=== PATIENT | female | born 2000 | race Caucasian/White ===

== ENCOUNTER 2022-02-20 17:21 | Emergency (ER) | payer MEDICAID, SELFPAY ==
[2022-02-20 17:42] VITALS: BP 103/63; PULSE 103; RESP 20; TEMP 36.8; O2SAT 100
--- NOTE | 2022-02-20 18:37 | W.ED.GENAD ---
Discharge Plan Disposition Patient Disposition: Home Condition: Stable Discharge Details Clinical Impression: URI (upper respiratory infection), Asthma exacerbation Primary Care Provider: None,None ED Provider: Domingo Yuen Home Meds and New Rx's Prescriptions: New benzonatate 200 mg capsule 200 mg PO TID PRN (Reason: cough) Qty: 30 0RF prednisone 20 mg tablet 40 mg PO DAILY Qty: 8 0RF Continued omeprazole 40 mg Capsule,Delayed Release(Dr/Ec) 40 mg PO DAILY PRN epinephrine 0.3 mg/0.3 mL Auto-Injector See Rx Instructions .ROUTE .COMPLEX Rx Instructions: Use as needed for allergic reaction albuterol sulfate 90 mcg/actuation Hfa Aerosol Inhaler 2 puff INHALATION Q6H PRN Discharge Instructions Instructions: Asthma (ED), Upper Respiratory Infection (ED) Additional Instructions: Please stay well-hydrated and get plenty of rest during your viral illness. If you develop any new or significant worsening of symptoms feel free to return the emergency department for reassessment. Otherwise if not improving by early next week feel free to return the emergency department for reassessment or follow-up with primary care provider or urgent care provider. Referrals: Primary Care Provider [Outside] Discharge Data Discharge Date/Time-TO BE ENTERED AT DEPARTURE: 02/20/22 19:20 Medical Decision Making Patient presented in emergency department for chief complaint of cold symptoms. She states over the past 3 days she has had increasing nasal congestion, sore throat, postnasal drip, and now having cough and chest tightness. She does state significant history of asthma. Physical exam shows decreased but clear lung sounds in lower bases otherwise exam is unremarkable beyond significant nasal congestion. Patient is negative for COVID and influenza via rapid antigen testing. We will perform send out test for COVID given patient stating recent travel. Otherwise I do not feel that patient has pneumonia at this time and I feel that this is an upper respiratory virus that is causing secondary asthma exacerbation. Will give patient albuterol, Tessalon Perles, and Decadron with continued prednisone at home and Tessalon Perles and albuterol inhaler. After discussion of diagnosis and plan of care patient has no further needs, questions, or concerns and states clear understanding to return to the emergency department for any worsening symptoms. This documentation was generated using [email or web address] system, please disregard any oddities of phrase or misspellings. Sign Out No HPI General Mode of arrival: ambulatory. Date/Time Provider Initiated Documentation: 02/20/22 17:49. Limitations to Documentation: no limitations. Information obtained by: patient. History of Present Illness 21 year old F presents to the emergency department with the chief complaint of cough and cold symptoms, described as moderate, with intensity rated at 7. Quality is described as aching, and is localized to the chest. Patient reports no radiation. Patient started experiencing this day(s) (3) and it has been constant. No relieving factors improve symptom(s), No exacerbating factors reported . Related Data Home Medications Medication Instructions Recorded Confirmed albuterol sulfate 90 mcg/actuation 2 puff inhalation Q6H PRN 02/20/22 02/20/22 aerosol inhaler benzonatate 200 mg capsule 200 mg PO TID PRN cough #30 caps 02/20/22 epinephrine 0.3 mg/0.3 mL See Rx Instructions .Route .COMPLEX 02/20/22 02/20/22 injection, auto-injector omeprazole 40 mg capsule,delayed 40 mg PO DAILY PRN 02/20/22 02/20/22 release prednisone 20 mg tablet 40 mg PO DAILY #8 tabs 02/20/22 Previous Rx's Medication Instructions Recorded benzonatate 200 mg capsule 200 mg PO TID PRN cough #30 caps 02/20/22 prednisone 20 mg tablet 40 mg PO DAILY #8 tabs 02/20/22 Allergies Allergy/AdvReac Type Severity Reaction Status Date / Time acetaminophen AdvReac Mild Nausea Unverified 02/20/22 17:47 General Stated Complaint: RespSymp CASSIE: 3 Review of Systems Constitutional Constitutional: Reports body ache(s), Reports chills, Reports headache(s), Reports lethargy, Reports malaise and Reports poor appetite Eyes Eyes: Denies eye discharge ENT Ears, Nose, Mouth, and Throat: Denies otalgia, Reports headache(s), Reports nasal congestion, Reports nasal discharge, Denies neck pain, Reports sinus pressure, Reports sore throat and Denies throat swelling Cardiovascular Cardiovascular: Denies chest pain and Denies dyspnea Respiratory Respiratory: Reports cough, Reports pain with cough and Denies dyspnea Musculoskeletal Musculoskeletal: Denies joint swelling and Denies neck pain Integumentary/Breasts Skin/Breast: Denies rash Neurologic Neurologic: Reports headache(s) Allergic/Immunologic Allergic/Immunologic: Denies throat swelling PFSH All Active Problems (Updated 02/20/22 @ 18:42 by Domingo Yuen NP) URI (upper respiratory infection) (Acute) Asthma exacerbation (Acute) Social History Smoking/Tobacco Use Status: Never Smoking risk assessment performed?: Yes Alcohol Intake: never Drug use: Never Substance use type: does not use Do you feel safe at home: Yes Do you feel safe in your relationship?: Yes Exam Const General: cooperative, no acute distress and ill appearing acutely Orientation: alert and awake [facility] Head: normal to inspection, normocephalic and atraumatic Ears: hearing grossly normal bilaterally and TM's normal bilaterally General nose exam: external nose normal Face and sinus: no erythema and sinus tenderness ethmoid and maxillary Mouth: oral mucosae normal, no drooling, no muffled voice and no trismus Throat: posterior oropharynx normal Neck Neck: normal visual inspection, full ROM, no lymphadenopathy, no meningeal signs, trachea midline and supple Resp Effort & Inspection: normal respiratory effort, able to speak in complete sentences and cough Quality of cough: dry Auscultation: clear to auscultation bilaterally and diminished lung sounds bilaterally in the lower lung pineda Cardio Rate: regular rate Rhythm: regular rhythm Heart Sounds: S1 normal, S2 normal, normal S1 and S2, no click, no gallops, no murmurs and no rubs Skin General skin exam: no rashes or lesions noted and dry skin (warm) Neuro General: patient alert, patient awake, patient oriented x3, gait normal and moves all extremities Cognition: normal cognition Speech: speech normal Course Vital Signs Vital signs: Vital Signs Temperature 36.8 C 02/20/22 17:42 Pulse 103 H 02/20/22 17:42 Respiratory Rate 20 02/20/22 17:42 Blood Pressure 103/63 02/20/22 17:42 Pulse Oximetry 100 02/20/22 17:42 Temperature 36.8 C 02/20/22 17:42 Temperature Source Oral 02/20/22 17:42 Pulse 103 H 02/20/22 17:42 Respiratory Rate 20 02/20/22 17:42 Respiratory Effort Short of Breath 02/20/22 17:50 Respiratory Depth Normal 02/20/22 17:50 Blood Pressure 103/63 02/20/22 17:42 Blood Pressure Position Sitting 02/20/22 17:42 Pulse Oximetry 100 02/20/22 17:42 Oxygen Delivery Method Room Air 02/20/22 17:42 Oxygen Flow Rate 0 02/20/22 17:42 Pain Level 7 02/20/22 17:42 Lab/Test Results Lab/Test Results: POC- Test(urine) Negative
[2022-02-20] MEDS: Albuterol/Ipratropium 3 ML UPD VIAL UPD (18:52)
[2022-02-20] MEDS: Benzonatate 100 MG CAP PO (18:53)
[2022-02-20] MEDS: Dexamethasone 10 MG/ML VIAL PO (18:53)
[2022-02-20] MEDS: Albuterol HFA 8 GM 60 PUFF INH IH (19:19)
[2022-02-22 10:54] LABS: COVID-19 RT-PCR UVMMC Result Negative (Negative)
== END 2022-02-20 19:20 | disposition home or self-care (01) ==
PROVIDERS: Emergency Provider Nurse Practitioner Family
DX: J06.9 Acute upper respiratory infection, unspecified (principal); J45.901 Unspecified asthma with (acute) exacerbation; Z20.822 Contact with and (suspected) exposure to COVID-19
CPT/HCPCS: 81025; 99283; U0003; J1100; J7620

== ENCOUNTER 2022-06-27 18:09 | Emergency (ER) | payer MEDICAID, SELFPAY ==
[2022-06-27 18:14] VITALS: BP 110/77; PULSE 81; RESP 16; O2SAT 99
--- NOTE | 2022-06-27 18:15 | RT.EKG_ITS ---
APPROVED REPORT Exam: Resting ECG Reason for Exam: fainting Patient Location: E HR:79 bpm ECG Measurements Heart Rate 79 AXIS WA 136 P 92 QRSd 89 QRS 49 QT 375 T 55 QTc 430 Conclusion Sinus rhythm...normal P axis, V-rate 60- 99 Normal Electrocardiogram
[2022-06-27 18:23] VITALS: RESP 16
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
[2022-06-27] MEDS: LORazepam 0.5 MG TAB PO (19:02)
[2022-06-27 19:16] LABS: HCT 34.9 % (36.0-46.0); HGB 12.1 g/dL (11.2-15.7); MCH 29.6 pg (27.0-33.0); MCHC 34.7 % (32.0-36.0); MCV 85 fL (80-95); MPV 10.7 fL (8.0-11.0); Platelet Count 263 10^3/uL (130-400); RBC 4.09 10^6/uL (3.93-5.22); RDW 11.5 % (11.7-14.6); RDW-SD 35.7 fL; WBC 5.79 10^3/uL (4.4-10.8)
[2022-06-27 19:34] LABS: Anion Gap 6.6 mmol/L (3-11); BUN 7 mg/dL (7-18); CO2 27.4 mmol/L (21.0-32.0); CREATININE 0.9 mg/dL (0.55-1.02); Chloride 106 mmol/L (98-107); Estimated GFR 93.28 (mL/min/1.73m2); Glucose 95 mg/dL (74-106); Potassium 3.4 mmol/L (3.5-5.1); Sodium 140 mmol/L (136-145)
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
--- NOTE | 2022-06-29 12:56 | PDOC.ERCMACT ---
- If Service Date Differs Date of service: 06/29/22 Time of Service: 12:56 Care Management Activity Note Jo Ann is seen in the ED for pre-syncope and anxiety. At the request of ED provider, LAMBERT coordinates a referral to DARREN Jackman, of [facility], t-doc, to assist Jo Ann in obtaining a follow up appointment and in establishing care with a PCP. She has Medicaid for insurance.
== END 2022-06-27 22:46 | disposition home or self-care (01) ==
PROVIDERS: Emergency Provider Physician Assistant
DX: F41.9 Anxiety disorder, unspecified (principal); R55 Syncope and collapse; F32.A Depression, unspecified; J45.909 Unspecified asthma, uncomplicated
CPT/HCPCS: 80048; 81025; 85027; 93005; 99284; 84443; 93010

== ENCOUNTER 2022-07-18 15:33 | Outpatient (REF) | payer MEDICAID, SELFPAY ==
[2022-07-18 14:44] LABS: Abs Immature Grans 0.01 10^3/uL (0.0-0.06); Absolute Basophil Count 0.03 10^3/uL (0.0-0.2); Absolute Eosinophil Count 0.11 10^3/uL (0.0-0.7); Absolute Lymphocyte Count 1.43 10^3/uL (1.2-3.4); Absolute Neutrophil Count 2.87 10^3/uL (1.2-6.7); Basophils % 0.6; Eosinophils % 2.3; HCT 37.7 % (36.0-46.0); HGB 12.7 g/dL (11.2-15.7); Immature Grans % 0.2; Lymphocytes % 29.5; MCH 28.8 pg (27.0-33.0); MCHC 33.7 % (32.0-36.0); MCV 86 fL (80-95); MPV 11.1 fL (8.0-11.0); Monocytes % 8.2; Neutrophils % 59.2; Platelet Count 319 10^3/uL (130-400); RBC 4.41 10^6/uL (3.93-5.22); RDW 11.2 % (11.7-14.6); RDW-SD 35.3 fL; WBC 4.85 10^3/uL (4.4-10.8)
[2022-07-18 15:01] LABS: Anion Gap 6.2 mmol/L (3-11); BUN 8 mg/dL (7-18); CO2 27.8 mmol/L (21.0-32.0); CREATININE 0.8 mg/dL (0.55-1.02); Calcium 9.7 mg/dL (8.5-10.1); Chloride 103 mmol/L (98-107); Estimated GFR 107.44 (mL/min/1.73m2); Glucose 81 mg/dL (74-106); Potassium 4.2 mmol/L (3.5-5.1); Sodium 137 mmol/L (136-145)
== END 2022-07-18 15:34 | disposition home or self-care (01) ==
LOC: LBN 15:33
PROVIDERS: Visit Provider Physician Assistant Medical
DX: R42 Dizziness and giddiness (principal)
CPT/HCPCS: 80048; 85025

== ENCOUNTER 2022-08-14 11:34 | Emergency (ER) | payer MEDICAID, SELFPAY ==
[2022-08-14 11:45] VITALS: BP 101/76; PULSE 91; RESP 18; TEMP 37; O2SAT 97
[2022-08-14 12:26] LABS: Bilirubin Negative (Negative); Blood Negative (Negative); Clarity Clear (Clear); Glucose Negative (Negative); Ketones Negative (Negative); Leukocyte Esterase Negative (Negative); Nitrite Negative (Negative); Specific Gravity 1.025 (1.005-1.025)
[2022-08-14 12:41] LABS: *AMPHETAMINES SCREEN URINE Negative (Negative); *BARBITURATES SCREEN URINE Negative (Negative); *BENZODIAZEPINES SCREEN URINE Negative (Negative); Cannabinoids THC Negative (Negative); Cocaine Screen,Urine Negative (Negative); METHADONE URINE SCREEN Negative (Negative); OPIATES URINE SCREEN Negative (Negative)
[2022-08-14 12:43] LABS: Tricyclic Antidepressants Negative (Negative)
--- NOTE | 2022-08-14 14:11 | ED.GENADUL_ITS ---
Discharge Plan Disposition Patient Disposition: Home Condition: Stable Discharge Details Clinical Impression: Depression, Anxiety Primary Care Provider: Akosua Patricia ED Provider: Allen Fallon Home Meds and New Rx's Prescriptions: Continued epinephrine 0.3 mg/0.3 mL Auto-Injector See Rx Instructions .ROUTE .COMPLEX Rx Instructions: Use as needed for allergic reaction albuterol sulfate 90 mcg/actuation Hfa Aerosol Inhaler 2 puff INHALATION Q6H PRN Patient Comments: per patient I dont use this anymore Held hydroxyzine HCl 25 mg Tablet 25 mg PO PRN PRN Hold Instructions: Resume on 08/15/22. hold until discussed with psychiatry Discontinued omeprazole 40 mg Capsule,Delayed Release(Dr/Ec) 40 mg PO DAILY PRN Patient Comments: per patient I just don't take that anymore benzonatate 200 mg capsule 200 mg PO TID PRN (Reason: cough) Qty: 30 0RF Patient Comments: RX complete 06/27/[address]22 CT prednisone 20 mg tablet 40 mg PO DAILY Qty: 8 0RF Patient Comments: per patient prescription completed Discharge Instructions Instructions: Depression (ED), Anxiety (ED) Additional Instructions: Please follow-up tomorrow with psychiatry at [facility] at 12:00 noon. Please contact your primary care physician to arrange follow-up. Return to the ER immediately for any worsening or new concerning symptoms. Stand Alone Forms: Work Release Referrals: Akosua Patricia [Primary Care Provider] - Medical Decision Making 21-year-old female with history of anxiety and depression, here with exacerbation of anxiety and passive fleeting suicidal thoughts. Patient recently seen by primary care physician and trialing various psychiatric medications. Patient was medically screened and no acute medical condition identified. Smart medical clearance was utilized. Crisis screener from designated agency was consulted and evaluated the patient at bedside. She does not recommend seeking inpatient psychiatric treatment and recommends discharge with safety plan in place and close outpatient follow-up. I called and spoke with patient's primary care office, [facility] and arranged for patient to have a visit with psychiatric nurse practitioner tomorrow at 12 noon. Plan was discussed with the patient who is in agreement. Patient feels safe with discharge and discharge plan as outlined. Usual customary discharge instructions were reviewed with the patient and she was encouraged to return immediately should have any worsening or new concerning symptoms. HPI General Mode of arrival: ambulatory . Date/Time Provider Initiated Documentation: 08/14/22 12:19 . Limitations to Documentation: no limitations . Information obtained by: patient . HPI Narrative: 21-year-old female with history of longstanding anxiety disorder and depression, presents with worsening anxiety over the past 2 months and now with fleeting suicidal thoughts. Patient notes she has been seen by her primary care physician and has been trialing medications over the past couple weeks. She was on Zoloft for 4 days and felt that it made her angry. This was discontinued last week. She was then trialed on propanolol which she notes did not help her anxiety. She just recently started hydroxyzine with plan to start Wellbutrin. She notes hydroxyzine did help with her anxiety but it made her excessively tired and then she felt quite anxious about this. She notes over the past few days she has been having passive thoughts of suicidality when she is anxious including thinking about cutting herself or jumping in front of a motor vehicle. Patient notes history of vaping. Related Data Home Medications Medication Instructions Recorded Confirmed albuterol sulfate 90 mcg/actuation 2 puff inhalation Q6H PRN 02/20/22 08/14/22 aerosol inhaler epinephrine 0.3 mg/0.3 mL See Rx Instructions .Route .COMPLEX 02/20/22 08/14/22 injection, auto-injector hydroxyzine HCl 25 mg tablet 25 mg PO PRN PRN 08/14/22 08/14/22 Allergies Allergy/AdvReac Type Severity Reaction Status Date / Time shellfish derived Allergy Severe Anaphylaxis Unverified 08/14/22 11:54 lactose Allergy Intermediate Other (See Unverified 08/14/22 11:54 Comment) peanut AdvReac Severe Anaphylaxis Unverified 08/14/22 11:54 tree nut AdvReac Intermediate Hives Unverified 08/14/22 11:54 acetaminophen AdvReac Mild Nausea Unverified 08/14/22 11:54 General Stated Complaint: PsychEval CASSIE: 2 Review of Systems All systems reviewed & are unremarkable except as noted in HPI and below Constitutional Constitutional: Denies fever(s) Psychiatric Psychiatric: Reports as per HPI PFSH All Active Problems Depression (Chronic) Anxiety (Chronic) Asthma (Chronic) Social History Smoking/Tobacco Use Status: Never Smoking risk assessment performed?: Yes Alcohol Intake: never Drug use: Never Substance use type: does not use Do you feel safe at home: Yes Do you feel safe in your relationship?: Yes Exam Const General: cooperative HENMT Head: normocephalic and atraumatic Mouth: moist mucous membranes Eyes Conjunctivae: normal conjunctivae Sclera: normal sclerae Neck Neck: trachea midline and supple Resp Auscultation: clear to auscultation bilaterally, no rales, no rhonchi and no wheezes Cardio Rate: regular rate and not tachycardic Rhythm: regular rhythm GI Palpation: soft, not firm, no guarding, no masses, not rigid and nontender Skin General skin exam: no rashes or lesions noted Neuro General: patient alert, patient awake, patient oriented x3 and tone normal Psych Appearance: grossly normal Mental Status: mental status grossly normal Speech and Movement: speech and movement normal Mood: anxious mood Affect: normal affect Attitude: cooperative Thought Process: normal Insight: insight good Judgment: judgment good Course Vital Signs Vital signs: Vital Signs Temperature 37.0 C 08/14/22 11:45 Pulse 91 H 08/14/22 11:45 Respiratory Rate 18 08/14/22 11:45 Blood Pressure 101/76 08/14/22 11:45 Pulse Oximetry 97 08/14/22 11:45 Temperature 37.0 C 08/14/22 11:45 Temperature Source Oral 08/14/22 11:45 Pulse 91 H 08/14/22 11:45 Respiratory Rate 18 08/14/22 11:45 Blood Pressure 101/76 08/14/22 11:45 Blood Pressure Position Sitting 08/14/22 11:45 Pulse Oximetry 97 08/14/22 11:45 Oxygen Delivery Method Room Air 08/14/22 11:45 Oxygen Flow Rate 0 08/14/22 11:45 Lab/Test Results Lab/Test Results: Laboratory Tests Range/Units 08/14/22 08/14/22 12:15 12:15 Urine Color (Yellow) Yellow Urine Clarity (Clear) Clear Urine pH (5-8) 7.0 Ur Specific [place] (1.005-1.025) 1.025 Urine Protein (Negative) mg/dL Negative Urine Ketones (Negative) mg/dL Negative Urine Blood (Negative) Negative Urine Nitrite (Negative) Negative Urine Bilirubin (Negative) Negative Urine Urobilinogen (Up to 0.2) mg/dL 1.0 H Ur Leukocyte Esterase (Negative) Negative Urine Glucose (Negative) mg/dL Negative Urine Opiates Screen (Negative) Negative Urine Methadone Screen (Negative) Negative Ur Barbiturates Screen (Negative) Negative Ur Tricyclics Screen (Negative) Negative Ur Amphetamines Screen (Negative) Negative U Benzodiazepines Scrn (Negative) Negative Urine Cocaine Screen (Negative) Negative Ur THC Screen (Negative) Negative
[2022-08-14 14:51] VITALS: PULSE 80; RESP 18; O2SAT 98
== END 2022-08-14 14:59 | disposition home or self-care (01) ==
PROVIDERS: Emergency Provider Student in an Organized Health Care Education/Training Program; PCP Nurse Practitioner Family
DX: F32.A Depression, unspecified (principal); R45.851 Suicidal ideations; F41.0 Panic disorder [episodic paroxysmal anxiety]; F41.9 Anxiety disorder, unspecified
CPT/HCPCS: 80307; 81025; 99285; 81003; 99284

== ENCOUNTER 2022-08-15 12:57 | Outpatient (REF) | payer MEDICAID, SELFPAY ==
[2022-08-15 19:22] LABS: Vitamin B12 208 pg/mL (193-986)
--- NOTE | 2022-08-18 08:27 | PDOC.MHCN_ITS ---
Date of service: 08/14/22 Time of Service: 08:29 PHQ-9 Over the last 2 weeks, how often have you been bothered by any of the following problems? 1. Little interest or pleasure in doing things: more than half the days 2. Feeling down, depressed, or hopeless: nearly every day 3. Trouble falling or staying asleep, or sleeping too much: several days 4. Feeling tired or having little energy: nearly every day 5. Poor appetite or overeating: nearly every day 6. Feeling bad about yourself - or that you are a failure or have let yourself and your family down: more than half the days 7. Trouble concentrating on things, such as reading the newspaper or watching television: several days 8. Moving or speaking so slowly that other people could have noticed? - Or the opposite - being so fidgety or restless that you have been moving around a lot more than usual: several days 9. Thoughts that you would be better off or of hurting yourself in some way: several days Total score: 17 If you checked off any problems, how difficult have these problems made it for you to do your work, take care of things at home, or get along with other people?: somewhat difficult Source: Developed by Drs. Alex Garcia, Naya Sibley, Chirstiano Dorantes and colleagues, with an educational lizett from [employer]. Suicide Severity Rate CSSRS Have you wished you were or wished you could go to sleep and not wake up?: No Have you actually had any thoughts of killing yourself?: Yes CSSRS2 Have you been thinking about how you might do this?: No Have you had these thoughts and had some intention of acting on them?: No Have you started to work out or worked out the details of how to kill yourself? Do you intend to carry out this plan?: No CSSRS3 Have you ever done anything, started to do anything or prepared to do anything to end your life?: No CSSRS4 Was this within the past three months?: No Screening Score Total Score: 2 Screening: Positive Mental Health Emergency Note Release [facility] release signed:: Yes Reason for Visit [facility] outreached to [facility] for an assessment of the client who presented with anxiety and vague SI. Client had been assessed once before by this clinician in May and a referral was put in for therapy at her request however, she never responded to outreaches. Client is seen face to face. In the last 2 weeks has the pt presented for ES prior to today?: No Client Information Client is: Adult Outpatient Well Housed: Yes Non Suicidal Self Injury Current: No History: No Safety Risk/Harm to Self or Others Current Ideation to Harm Self or Others: No Risk: Does risk to harm exist?: No Risk: Low Risk Duty to warn indicated: No Asssessment/Mental Status Appearance: Well groomed Attitude: Cooperative Behavior: Unremarkable Speech: Normal Affect: Normal Mood: Euthymic Thought process: Unremarkable Hallucinations: No Delusions: No Attention: Unremarkable Perception: Not impaired Memory: Intact Insight: Good Judgement: Good Neurovegetative Symptoms Sleep: Decrease Appetitie: Decrease Interests: Decrease Energy: Decrease Libido: Not applicable Substance Use: Do you use nicotine?: Yes Have you used substances in the last 7 days?: No Additional Issues: Assaultive/Threatening Behavior: No Medical Concerns: No Client engaged in active self harm w/weapon: No Threatening to run away: No Child reported abuse/neglect: No Voluntarily presenting for services: Yes Domestic violence is a concern: No Extreme Psychosis or extreme behavior is present: No Impression Client is a 21 year old, single, female who lives with her boyfriend and works for [employer] in [facility]. This is this clinician's second time assessing the client this year. Client reported she started taking medications in the past couple of weeks and wondered if this is why she is struggling right now as she has been sensitive to any meds in the past hence why she does not take medications for her ADD/ADHD. She stated that she took one of her hydroxazine for anxiety last night and she woke up still tired. She stated that she began having suicidal thoughts but are they really? I can't differentiate between SI or just intrusive thoughts. She reported that last night her thoughts were racing and her chest was heavy whole she was driving and then she had thoughts to drive into oncoming traffic or to slit her wrists or to overdose on medications. To all when she has these thou ghts she tells herself no. She reported that the thoughts are overwhelming and unfamiliar to her. She stated that she took Zoloft once and although it made her mostly happy at some point it began to increase her rage. She also stated that she took Propranolol and that was awful for her. She was also prescribed Welbutrin however is not supposed to start that until Thursday per her report. She scored a 17/27 on the PHQ-9 and a 3/5 on the PC-PTSD-5. She answered yes to only question 2 on the CSSRS. She reported poor sleep, appetite, interest levels and energy levels. The above identified supports the Generalized anxiety disorder given at time of opening however, this clinician also questions a MDD disorder as well. Her protective factors are futuristic thinking, employment, coping skills, and her ability to self regulate as much as she does with what she is experiencing as well as, her support network. Client is interested in therapy and this was questioned as a referral was put in back in May and documentation stated that she did not return calls. She reported that she did not recall getting calls about this. This clinician consulted also with Dr. Fallon who plans to connect with [facility] to expedite her referral. A CARE Bed referral was discussed however, the client would like to think on this for a bit. Resources Reosurces reviewed and given:: [facility] Plan/Disposition Recommended Disposition: Crisis bed, (Offered but declined ) No and Therapy. Plan: Client participated in a safety plan where she will do daily check in calls until Thursday and then will connect with her in place team. She will consider the CARE Bed as an option.? Person reported agreement to plan: Yes Reports/communication Outcome discussed with: ED/Personnel
== END 2022-08-15 12:58 | disposition home or self-care (01) ==
LOC: NCHCN 12:57
PROVIDERS: PCP Nurse Practitioner Family; Visit Provider Registered Nurse
DX: F31.81 Bipolar II disorder (principal); Z79.899 Other long term (current) drug therapy
CPT/HCPCS: 82607; 84443

== ENCOUNTER 2022-08-30 20:38 | Emergency (ER) | payer MEDICAID, SELFPAY ==
[2022-08-30] VITALS (12 sets, daily range): BP systolic 100–121; BP diastolic 70–79; PULSE 63–99; RESP 9–22; TEMP 36.8; O2SAT 97–100
[2022-08-30] MEDS: LORazepam 0.5 MG TAB PO (21:37)
[2022-08-30 21:44] LABS: Bilirubin Negative (Negative); Blood Negative (Negative); Clarity Clear (Clear); Glucose Negative (Negative); Ketones Negative (Negative); Leukocyte Esterase Negative (Negative); Nitrite Negative (Negative); Urobilinogen 0.2 mg/dL (Up to 0.2)
--- NOTE | 2022-08-30 22:08 | ED.GENADUL_ITS ---
Discharge Plan Disposition Patient Disposition: Home Condition: Improving Discharge Details Clinical Impression: Anxiety Primary Care Provider: Akosua Patricia ED Provider: Domingo Yuen Home Meds and New Rx's Prescriptions: Continued epinephrine 0.3 mg/0.3 mL Auto-Injector See Rx Instructions .ROUTE .COMPLEX Rx Instructions: Use as needed for allergic reaction albuterol sulfate 90 mcg/actuation Hfa Aerosol Inhaler 2 puff INHALATION Q6H PRN Patient Comments: per patient I dont use this anymore Discontinued hydroxyzine HCl 25 mg Tablet 25 mg PO PRN PRN Hold Instructions: Resume on 08/15/22. hold until discussed with psychiatry Discharge Instructions Instructions: Anxiety (ED) Additional Instructions: Your symptoms this evening were consistent with an anxiety or panic attack. Please use breathing techniques as discussed and continue to take your medication as prescribed. If you have any new or significant worsening of symptoms feel free to return the emergency department for reassessment otherwise follow-up with your counselor or mental health services for further discussion of medication changes or additional help. Referrals: [facility] [Outside] (Please call the office early next week to arrange follow-up appointment.) Discharge Data Discharge Date/Time-TO BE ENTERED AT DEPARTURE: 08/30/22 22:19 Medical Decision Making Patient presenting to the emergency department for chief complaint of anxiety attack. Patient started having a slight coughing fit but then went into a panic attack. She did state some chest tightness rapid breathing and some tingling of her hands. She has been changing her medications in order to treat her anxiety. Patient denies any other physical complaints. Physical exam does show general appearance of patient being anxious but otherwise no other physical exam findings are noted. After discussion with patient about breathing techniques which did somewhat help to give patient small dose of Ativan after ensuring that she was not . Observe patient and patient did have continued improvement of symptoms and was requesting to go home. I do not feel that we need any other evaluation and mental services does not need to be contacted as patient has a close relationship with them and is not homicidal or suicidal and feels safe to go home. After discussion of diagnosis and plan of care patient has no further needs, questions, or concerns and states clear understanding to return to the emergency department for any worsening symptoms. This documentation was generated using [employer] system, please disregard any oddities of phrase or misspellings. HPI General Mode of arrival: ambulatory . Date/Time Provider Initiated Documentation: 08/30/22 20:42 . Limitations to Documentation: no limitations . Information obtained by: patient and RN notes reviewed . History of Present Illness 21 year old F presents to the emergency department with the chief complaint of Panic attack, described as moderate and similar to prior episodes, Patient started experiencing this hour(s) (2) and it has been constant. No relieving factors improve symptom(s), Medication worsens symptoms (May be medication changes) . Patient notes no other symptoms.. Patient did receive the following treatments prior to arrival, none Related Data Home Medications Medication Instructions Recorded Confirmed albuterol sulfate 90 mcg/actuation 2 puff inhalation Q6H PRN 02/20/22 08/30/22 aerosol inhaler epinephrine 0.3 mg/0.3 mL See Rx Instructions .Route .COMPLEX 02/20/22 08/30/22 injection, auto-injector Allergies Allergy/AdvReac Type Severity Reaction Status Date / Time peanut Allergy Severe Anaphylaxis Unverified 08/31/22 07:08 shellfish derived Allergy Severe Anaphylaxis Unverified 08/30/22 20:51 lactose Allergy Intermediate Other (See Unverified 08/30/22 20:51 Comment) tree nut Allergy Intermediate Hives Unverified 08/31/22 07:08 acetaminophen AdvReac Mild Nausea Unverified 08/30/22 20:51 General Stated Complaint: Anxiety CASSIE: 3 Review of Systems Constitutional Constitutional: Denies body ache(s), Denies chills and Denies fever(s) ENT Ears, Nose, Mouth, and Throat: Denies sore throat and Denies throat swelling Cardiovascular Cardiovascular: Denies chest pain and Denies dyspnea Respiratory Respiratory: Denies cough and Denies dyspnea Gastrointestinal Gastrointestinal: Denies abdominal pain, Denies diarrhea, Denies nausea and Den ies vomiting Genitourinary Genitourinary: Denies dysuria Musculoskeletal Musculoskeletal: Reports tingling Neurologic Neurologic: Reports tingling Psychiatric Psychiatric: Reports as per HPI, Reports anxiety and Reports irritability Allergic/Immunologic Allergic/Immunologic: Denies throat swelling PFSH All Active Problems (Updated 08/30/22 @ 22:08 by Domingo Yuen NP) Depression (Chronic) Anxiety (Chronic) Asthma (Chronic) Social History Smoking/Tobacco Use Status: Current every day Tobacco Type: e-cigarettes Smoking risk assessment performed?: Yes Alcohol Intake: never Drug use: Never Substance use type: does not use Do you feel safe at home: Yes Do you feel safe in your relationship?: Yes Exam Const General: cooperative Orientation: alert, awake and oriented x3 Limitations: mental status not altered HENMT Head: normal to inspection, normocephalic and atraumatic Ears: hearing grossly normal bilaterally Mouth: moist mucous membranes Eyes General: appearance normal, both eyes and all related structures Pupils: PERRL EOM: EOM intact bilaterally Resp Effort & Inspection: normal respiratory effort, able to speak in complete sentences and no respiratory distress Auscultation: clear to auscultation bilaterally Cardio Rate: regular rate and not tachycardic Rhythm: regular rhythm Heart Sounds: S1 normal, S2 normal, no click, no gallops, no murmurs and no rubs Neuro General: patient alert, patient awake, patient oriented x3, gait normal, moves all extremities and no focal motor deficits Cognition: normal cognition Speech: speech normal Psych Speech and Movement: speech and movement normal and speech clear Mood: anxious mood Affect: anxious affect Attitude: cooperative Thought Process: normal Thought Content: normal, no hallucinations, no homicidality and suicidality Course Vital Signs Vital signs: Vital Signs Temperature 36.8 C 08/30/22 20:43 Pulse 99 H 08/30/22 20:43 Respiratory Rate 15 08/30/22 20:43 Blood Pressure 121/72 08/30/22 20:43 Pulse Oximetry 100 08/30/22 20:43 Temperature 36.8 C 08/30/22 20:43 Temperature Source Oral 08/30/22 20:43 Pulse 63 08/30/22 21:15 Pulse 81 08/30/22 21:31 Respiratory Rate 16 08/30/22 21:31 Respiratory Effort Normal 08/30/22 21:03 Respiratory Depth Normal 08/30/22 21:03 Respiratory Pattern Normal 08/30/22 21:03 Blood Pressure 116/79 08/30/22 21:15 Blood Pressure Mean 87 08/30/22 21:15 Blood Pressure Position Supine 08/30/22 20:43 Pulse Oximetry 99 08/30/22 21:31 Pain Level 0 08/30/22 20:43 Lab/Test Results Lab/Test Results: Laboratory Tests Range/Units 08/30/22 20:45 Urine Color (Yellow) Yellow Urine Clarity (Clear) Clear Urine pH (5-8) 7.0 Ur Specific [place] (1.005-1.025) 1.010 Urine Protein (Negative) mg/dL Negative Urine Ketones (Negative) mg/dL Negative Urine Blood (Negative) Negative Urine Nitrite (Negative) Negative Urine Bilirubin (Negative) Negative Urine Urobilinogen (Up to 0.2) mg/dL 0.2 Ur Leukocyte Esterase (Negative) Negative Urine Glucose (Negative) mg/dL Negative POC Urine Test Start: 08/30/22 20:47 Freq: Status: Complete Protocol: Document 08/30/22 20:47 ASAD (Rec: 08/30/22 20:47 ASAD [id number]) Test(Urine)-POC POC- Test(urine) Negative POC- Test(urine) Negative
== END 2022-08-30 22:19 | disposition home or self-care (01) ==
PROVIDERS: Emergency Provider Nurse Practitioner Family; PCP Nurse Practitioner Family
DX: F41.9 Anxiety disorder, unspecified (principal); R05.9 Cough, unspecified
CPT/HCPCS: 81025; 99283; 81003

== ENCOUNTER 2022-11-01 09:06 | Emergency (ER) | payer MEDICAID, SELFPAY ==
[2022-11-01] VITALS (25 sets, daily range): BP systolic 100–118; BP diastolic 60–74; PULSE 62–102; RESP 11–24; O2SAT 98–100
--- NOTE | 2022-11-01 09:30 | RT.EKG_ITS ---
APPROVED REPORT Exam: Resting ECG Reason for Exam: chest pain Patient Location: E HR:64 bpm ECG Measurements Heart Rate 64 AXIS WY 135 P 81 QRSd 78 QRS 66 QT 407 T 76 QTc 422 Conclusion Sinus arrhythmia Appropriate intervals. No ST segment or T wave abnormalities to suggest occlusive MN
--- NOTE | 2022-11-01 09:30 | DI.RAD_ITS ---
Exam(s) XR CHEST 2V PA LATERAL EXAM: XR CHEST 2V PA LATERAL CLINICAL HISTORY: chest pain shortness of breath TECHNIQUE: 2D digital imaging was performed. COMPARISON: No exams were available for comparison FINDINGS: HEART: Normal size. Aorta: Not dilated. PULMONARY VASCULATURE: Normal. LUNGS: Clear. PLEURAL SPACE: No pleural effusion or pneumothorax. BONE:Unremarkable for age. IMPRESSION: No acute abnormality. DATA REPOSITORY: RADIATION DOSE DELIVERED:
--- NOTE | 2022-11-01 09:38 | ED.GENADUL_ITS ---
Discharge Plan Disposition Patient Disposition: Home Condition: Good Discharge Details Clinical Impression: Chest pain Primary Care Provider: Akosua Patricia ED Provider: Pauline Lea Home Meds and New Rx's Prescriptions: No Action epinephrine 0.3 mg/0.3 mL Auto-Injector See Rx Instructions .ROUTE .COMPLEX Rx Instructions: Use as needed for allergic reaction albuterol sulfate 90 mcg/actuation Hfa Aerosol Inhaler 2 puff INHALATION Q6H PRN Patient Comments: per patient I dont use this anymore aripiprazole 10 mg tablet 5 mg PO DAILY Patient Comments: TAKE ONE TABLET BY MOUTH EVERY DAY hydroxyzine HCl 25 mg tablet 25 mg PO PRN PRN (Reason: Anxiety) Patient Comments: Take 1 tablet by mouth twice a day as needed for anxiety/panic Discharge Instructions Instructions: Chest Pain (ED), GERD (Gastroesophageal Reflux Disease) (ED) Additional Instructions: Call your primary care doctor today to schedule an appointment to follow up on your visit here. You can take over the counter antacids as needed for your symptoms, follow the directions on the bottle. Return to the emergency department for new or worsening symptoms, including new/different/worse chest pain, difficultly breathing, or if you have any other concerns. Referrals: Akosua Patricia [Primary Care Provider] - Medical Decision Making 22yo F with asthma, anxiety, presenting for several weeks of morning nausea with dry heaving with associated shortness of breath. No vomiting, just dry heaves, nasuea resolved on presentation. Today with substernal chest pain, since resolved; also reports pleuritic pain. Vital signs and physical exam reassuring, abdomen non-tender, no tachycardia or hypoxia to suggest pulmonary embolism. Exam not concerning for acute/surgical intraabdominal process, would not get CT. EKG sinus rhythm with sinus rhythm, appropriate intervals, no concerning ST segment or T wave abnormalities to suggest occlusive NH. CXR independently reviewed, with no pneumonia or pneumothorax, no suggest of Boerhave's, agree with radiology read below. Upreg negative. UA with RBC, WBC, many epis; patient menstruating, no s/s UTI, would not treat. Labs reviewed as below, CBC with no anemia, CMP with normal electrolytes, d- dimer negative (would not pursue PE further with CT), troponin negative x 2. On reassessment patient reports feeling much improved after [place]. Vital signs remain reassuring. Low suspicion for acute coronary syndrome, suspect likely reflux in the setting of recent GI illness. Discharged home to followup with PCP, discharge instructions and return precautions were reviewed with patient who verbalized understanding. All questions were answered and she is in full agreement with the plan. Imaging Data Radiologic Study: Imaging: X-Ray Lab Data Lab results reviewed: Yes I reviewed the patient's lab results. Labs: Laboratory Tests Range/Units 11/01/22 11/01/22 11/01/22 09:26 10:00 10:00 WBC (4.4-10.8) 10^3/uL 3.44 L RBC (3.93-5.22) 10^6/uL 4.39 Hgb (11.2-15.7) g/dL 12.7 Hct (36.0-46.0) % 37.9 MCV (80-95) fL 86 MCH (27.0-33.0) pg 28.9 MCHC (32.0-36.0) % 33.5 RDW (11.7-14.6) % 11.6 L Plt Count (130-400) 10^3/uL 300 MPV (8.0-11.0) fL 9.9 Immature Gran % 0.0 Neutrophils % 60.2 Lymphocytes % 30.5 Monocytes % 7.0 Eosinophils % 1.7 Basophils % 0.6 Nucleated RBC % (0.0-0.3) % 0.0 Absolute Neutrophils (1.2-6.7) 10^3/uL 2.07 Absolute Lymphocytes (1.2-3.4) 10^3/uL 1.05 L Absolute Monocytes (0.1-0.8) 10^3/uL 0.24 Absolute Eosinophils (0.0-0.7) 10^3/uL 0.06 Absolute Basophils (0.0-0.2) 10^3/uL 0.02 D-Dimer (<500) ng/mlFEU Sodium (136-145) mmol/L 140 Potassium (3.5-5.1) mmol/L 3.9 Chloride (98-107) mmol/L 103 Carbon Dioxide (21.0-32.0) mmol/L 27.6 Anion Gap (3-11) mmol/L 9.4 BUN (7-18) mg/dL 7 Creatinine (0.55-1.02) mg/dL 0.9 Est GFR (CKD-EPI 2020) (mL/min/1.73m2) 92.70 Glucose (74-106) mg/dL 89 Calcium (8.5-10.1) mg/dL 9.1 Total Bilirubin (0.2-1.0) mg/dL 0.7 AST (15-37) U/L 12 L ALT (14-59) U/L 15 Alkaline Phosphatase (46-116) U/L 63 Troponin I (<or=60) ng/L < 50 Total Protein (6.4-8.2) g/dL 7.5 Albumin (3.4-5.0) g/dL 4.0 Urine Color (Yellow) Yellow Urine Clarity (Clear) Clear Urine pH (5-8) 6.5 Ur Specific [place] (1.005-1.025) 1.020 Urine Protein (Negative) mg/dL Negative Urine Ketones (Negative) mg/dL Negative Urine Blood (Negative) Moderate H Urine Nitrite (Negative) Negative Urine Bilirubin (Negative) Negative Urine Urobilinogen (Up to 0.2) mg/dL 0.2 Ur Leukocyte Esterase (Negative) Trace H Urine RBC (0-2) HPF 5-10 H Urine WBC (0-5) HPF 20-50 H Ur Epithelial Cells (Negative) HPF Many Urine Crystals (Negative) HPF Negative Urine Bacteria (Negative) HPF Moderate Urine Casts (Negative) LPF Negative Urine Mucus (Negative) Negative Ur Culture Indicated? No/Sq. Contamination Urine Glucose (Negative) mg/dL Negative Range/Units 11/01/22 11/01/22 10:00 13:14 WBC (4.4-10.8) 10^3/uL RBC (3.93-5.22) 10^6/uL Hgb (11.2-15.7) g/dL Hct (36.0-46.0) % MCV (80-95) fL MCH (27.0-33.0) pg MCHC (32.0-36.0) % RDW (11.7-14.6) % Plt Count (130-400) 10^3/uL MPV (8.0-11.0) fL Immature Gran % Neutrophils % Lymphocytes % Monocytes % Eosinophils % Basophils % Nucleated RBC % (0.0-0.3) % Absolute Neutrophils (1.2-6.7) 10^3/uL Absolute Lymphocytes (1.2-3.4) 10^3/uL Absolute Monocytes (0.1-0.8) 10^3/uL Absolute Eosinophils (0.0-0.7) 10^3/uL Absolute Basophils (0.0-0.2) 10^3/uL D-Dimer (<500) ng/mlFEU 193 Sodium (136-145) mmol/L Potassium (3.5-5.1) mmol/L Chloride (98-107) mmol/L Carbon Dioxide (21.0-32.0) mmol/L Anion Gap (3-11) mmol/L BUN (7-18) mg/dL Creatinine (0.55-1.02) mg/dL Est GFR (CKD-EPI 2020) (mL/min/1.73m2) Glucose (74-106) mg/dL Calcium (8.5-10.1) mg/dL Total Bilirubin (0.2-1.0) mg/dL AST (15-37) U/L ALT (14-59) U/L Alkaline Phosphatase (46-116) U/L Troponin I (<or=60) ng/L < 50 Total Protein (6.4-8.2) g/dL Albumin (3.4-5.0) g/dL Urine Color (Yellow) Urine Clarity (Clear) Urine pH (5-8) Ur Specific [place] (1.005-1.025) Urine Protein (Negative) mg/dL Urine Ketones (Negative) mg/dL Urine Blood (Negative) Urine Nitrite (Negative) Urine Bilirubin (Negative) Urine Urobilinogen (Up to 0.2) mg/dL Ur Leukocyte Esterase (Negative) Urine RBC (0-2) HPF Urine WBC (0-5) HPF Ur Epithelial Cells (Negative) HPF Urine Crystals (Negative) HPF Urine Bacteria (Negative) HPF Urine Casts (Negative) LPF Urine Mucus (Negative) Ur Culture Indicated? Urine Glucose (Negative) mg/dL HPI General Mode of arrival: ambulatory . Date/Time Provider Initiated Documentation: 11/01/22 09:19 . Limitations to Documentation: no limitations . Information obtained by: patient . HPI Narrative: 22yo F with asthma, anxiety, presenting for several weeks of morning nausea with dry heaving with associated shortness of breath. No vomiting. Today when this occurred she also had moderate substernal chest pain radiating to her left armpit. No palpations, syncope, or presyncope. She also feels some pain when she takes a deep breath. Intermittent mid-abdominal pain, not currently present. No dysuria, hematuria, or vaginal discharge. She is otherwise in her usual state of health. Related Data Home Medications Medication Instructions Recorded Confirmed albuterol sulfate 90 mcg/actuation 2 puff inhalation Q6H PRN 02/20/22 11/01/22 aerosol inhaler epinephrine 0.3 mg/0.3 mL See Rx Instructions .Route .COMPLEX 02/20/22 11/01/22 injection, auto-injector aripiprazole 10 mg tablet 5 mg PO DAILY 11/01/22 11/01/22 hydroxyzine HCl 25 mg tablet 25 mg PO PRN PRN Anxiety 11/01/22 11/01/22 Allergies Allergy/AdvReac Type Severity Reaction Status Date / Time peanut Allergy Severe Anaphylaxis Unverified 08/31/22 07:08 shellfish derived Allergy Severe Anaphylaxis Unverified 08/30/22 20:51 lactose Allergy Intermediate Other (See Unverified 08/30/22 20:51 Comment) tree nut Allergy Intermediate Hives Unverified 08/31/22 07:08 acetaminophen AdvReac Mild Nausea Unverified 08/30/22 20:51 General Stated Complaint: Nausea/Vomit/Diar CASSIE: 3 Review of Systems Narrative: see HPI PFSH All Active Problems (Updated 11/01/22 @ 15:01 by Pauline Lea MD) Chest pain (Acute) Asthma (Chronic) Social History Smoking/Tobacco Use Status: Current every day Tobacco Type: e-cigarettes Smoking risk assessment performed?: Yes Alcohol Intake: never Drug use: Never Substance use type: does not use Do you feel safe at home: Yes Do you feel safe in your relationship?: Yes Exam Narrative Exam Narrative: General: Alert, well appearing, well nourished, in no acute distress. Head: Normocephalic, atraumatic Neck: Trachea midline, Neck supple. ENT: MMM. No oropharygeal lesions or exudate. Cardiac: RRR, no murmurs appreciated Resp: No respiratory distress. CTAB. Abd: Soft, non-distended, nontender : No suprapubic tenderness. No CVA tenderness. Extremities: No deformities. No peripheral edema. Neurologic: GCS 15. Moves all extremities freely against gravity Course Vital Signs Vital signs: Vital Signs Pulse 85 11/01/22 09:19 Respiratory Rate 20 11/01/22 09:19 Blood Pressure 102/74 11/01/22 09:19 Pulse Oximetry 98 11/01/22 09:19 Pulse 85 11/01/22 09:19 Respiratory Rate 20 11/01/22 09:19 Respiratory Effort Normal, Non-Labored 11/01/22 09:32 Blood Pressure 102/74 11/01/22 09:19 Blood Pressure Position Sitting 11/01/22 09:19 Pulse Oximetry 98 11/01/22 09:19 Oxygen Delivery Method Room Air 11/01/22 09:19 Oxygen Flow Rate 0 11/01/22 09:19 Lab/Test Results Lab/Test Results: POC- Test(urine) Negative
[2022-11-01 09:59] LABS: Bilirubin Negative (Negative); Blood Moderate (Negative); Clarity Clear (Clear); Glucose Negative (Negative); Ketones Negative (Negative); Leukocyte Esterase Trace (Negative); Nitrite Negative (Negative); Urobilinogen 0.2 mg/dL (Up to 0.2); pH 6.5 (5-8)
[2022-11-01 10:09] LABS: Bacteria Moderate HPF (Negative); C & S Indicated? No/Sq. Contamination; Casts Negative LPF (Negative); Crystals Negative HPF (Negative); Epithelial Cells Many HPF (Negative); Mucus Negative (Negative); WBC 20-50 HPF (0-5)
[2022-11-01 10:13] LABS: Absolute Basophil Count 0.02 10^3/uL (0.0-0.2); Absolute Eosinophil Count 0.06 10^3/uL (0.0-0.7); Absolute Lymphocyte Count 1.05 10^3/uL (1.2-3.4); Absolute Monocyte Count 0.24 10^3/uL (0.1-0.8); Absolute Neutrophil Count 2.07 10^3/uL (1.2-6.7); Basophils % 0.6; Eosinophils % 1.7; HCT 37.9 % (36.0-46.0); HGB 12.7 g/dL (11.2-15.7); Lymphocytes % 30.5; MCH 28.9 pg (27.0-33.0); MCHC 33.5 % (32.0-36.0); MCV 86 fL (80-95); MPV 9.9 fL (8.0-11.0); Neutrophils % 60.2; Platelet Count 300 10^3/uL (130-400); RBC 4.39 10^6/uL (3.93-5.22); RDW 11.6 % (11.7-14.6); RDW-SD 36.9 fL; WBC 3.44 10^3/uL (4.4-10.8)
[2022-11-01 10:29] LABS: ALT 15 U/L (14-59); AST 12 U/L (15-37); Alkaline Phosphatase 63 U/L (46-116); Anion Gap 9.4 mmol/L (3-11); BUN 7 mg/dL (7-18); Bilirubin, Total 0.7 mg/dL (0.2-1.0); CO2 27.6 mmol/L (21.0-32.0); CREATININE 0.9 mg/dL (0.55-1.02); Calcium 9.1 mg/dL (8.5-10.1); Chloride 103 mmol/L (98-107); Glucose 89 mg/dL (74-106); Potassium 3.9 mmol/L (3.5-5.1); Sodium 140 mmol/L (136-145); Total Protein 7.5 g/dL (6.4-8.2)
[2022-11-01 10:32] LABS: Troponin I < 50 ng/L (<or=60)
[2022-11-01 10:46] LABS: D-Dimer 193 ng/mlFEU (<500)
--- NOTE | 2022-11-01 10:49 | DI.VRAD_ITS ---
PROCEDURE INFORMATION: Exam: XR Chest Exam date and time: 11/01/2022 10:34 AM Age: 22 years old Clinical indication: Pain; Shortness of breath; Chest pressure TECHNIQUE: Imaging protocol: Radiologic exam of the chest. Views: 2 views. COMPARISON: No relevant prior studies available. FINDINGS: Body piercings: Horizontally oriented bilateral nipple posts. Lungs: Unremarkable. No consolidation. Pleural spaces: Unremarkable. No pleural effusion. No pneumothorax. Heart/Mediastinum: Unremarkable. No cardiomegaly. Bones/joints: Unremarkable. IMPRESSION: No acute findings. Dictated and Authenticated by: Francis Martinez MD. Ordering:JAZMYNE Carpenter MD
--- NOTE | 2022-11-01 12:15 | NUR.NOTE ---
Snacks provided to pt per MD okay. Waiting for repeat trop.Nursing Note:
[2022-11-01 13:37] LABS: Troponin I < 50 ng/L (<or=60)
== END 2022-11-01 15:19 | disposition home or self-care (01) ==
PROVIDERS: Emergency Provider Student in an Organized Health Care Education/Training Program; PCP Nurse Practitioner Family
DX: R07.9 Chest pain, unspecified (principal); R06.02 Shortness of breath; R11.2 Nausea with vomiting, unspecified; J45.909 Unspecified asthma, uncomplicated; F41.9 Anxiety disorder, unspecified; F17.290 Nicotine dependence, other tobacco product, uncomplicated
CPT/HCPCS: 80053; 81025; 93005; 99284; 71046; 81003; 81015; 84484; 85025; 85379; 93010; 99283

== ENCOUNTER 2022-12-04 17:39 | Outpatient (REF) | payer MEDICAID, SELFPAY ==
[2022-12-06 14:57] LABS: Chlamydia Result Negative (Negative); GC Result Negative (Negative)
== END 2022-12-04 17:40 | disposition home or self-care (01) ==
LOC: LBN 17:39
PROVIDERS: PCP Nurse Practitioner Family; Visit Provider Physician Assistant Medical
DX: B00.89 Other herpesviral infection (principal); N89.8 Other specified noninflammatory disorders of vagina; R82.79 Other abnormal findings on microbiological examination of urine
CPT/HCPCS: 87077; 87491; 87591; 87086; 87186; 87480; 87510; 87660

== ENCOUNTER 2022-12-24 13:14 | Outpatient (CLI) | payer MEDICAID, SELFPAY ==
[2022-12-24 13:27] LABS: Lactate 0.8 mmol/L (0.6-1.4)
[2022-12-24 13:28] LABS: Abs Immature Grans 0.01 10^3/uL (0.0-0.06); Absolute Basophil Count 0.02 10^3/uL (0.0-0.2); Absolute Eosinophil Count 0.05 10^3/uL (0.0-0.7); Absolute Lymphocyte Count 0.88 10^3/uL (1.2-3.4); Absolute Neutrophil Count 3.94 10^3/uL (1.2-6.7); Basophils % 0.4; HCT 33.8 % (36.0-46.0); HGB 11.3 g/dL (11.2-15.7); Immature Grans % 0.2; Lymphocytes % 16.9; MCH 28.9 pg (27.0-33.0); MCHC 33.4 % (32.0-36.0); MCV 86 fL (80-95); MPV 10.1 fL (8.0-11.0); Monocytes % 5.8; Neutrophils % 75.7; Platelet Count 290 10^3/uL (130-400); RBC 3.91 10^6/uL (3.93-5.22); RDW 11.9 % (11.7-14.6); RDW-SD 37.9 fL
[2022-12-24 13:57] LABS: ALT 11 U/L (14-59); AST 10 U/L (15-37); Albumin 3.5 g/dL (3.4-5.0); Alkaline Phosphatase 54 U/L (46-116); Anion Gap 9.3 mmol/L (3-11); BUN 6 mg/dL (7-18); Bilirubin, Total 0.4 mg/dL (0.2-1.0); CO2 24.7 mmol/L (21.0-32.0); CREATININE 0.8 mg/dL (0.55-1.02); Calcium 8.9 mg/dL (8.5-10.1); Chloride 106 mmol/L (98-107); Estimated GFR 106.77 (mL/min/1.73m2); Glucose 136 mg/dL (74-106); Potassium 3.7 mmol/L (3.5-5.1); Sodium 140 mmol/L (136-145); Total Protein 7.1 g/dL (6.4-8.2)
== END 2022-12-24 13:15 | disposition home or self-care (01) ==
PROVIDERS: PCP Nurse Practitioner Family; Visit Provider Physician Assistant Medical
DX: R10.9 Unspecified abdominal pain (principal); R79.89 Other specified abnormal findings of blood chemistry; R82.79 Other abnormal findings on microbiological examination of urine
CPT/HCPCS: 36415; 80053; 87077; 83605; 85025; 87086; 87186

== ENCOUNTER 2023-01-28 13:38 | Outpatient (REF) | payer MEDICAID, SELFPAY ==
[2023-01-28 14:09] LABS: Source Nasal/Nares
[2023-01-28 15:25] LABS: COVID-19 PCR Negative (Negative)
== END 2023-01-28 13:39 | disposition home or self-care (01) ==
LOC: LBN 13:38
PROVIDERS: PCP Nurse Practitioner Family; Visit Provider Physician Assistant Medical
DX: Z11.52 Encounter for screening for COVID-19 (principal); J02.9 Acute pharyngitis, unspecified
CPT/HCPCS: 87635; 87070

== ENCOUNTER 2023-04-23 10:56 | Outpatient (REF) | payer SELFPAY ==
[2023-04-23 22:12] LABS: Bacteria Moderate HPF (Negative); C & S Indicated? C&S Done As Ordered; Casts Negative LPF (Negative); Crystals Moderate Amorphous HPF (Negative); Epithelial Cells Negative HPF (Negative); Mucus Negative (Negative); RBC Negative HPF (0-2); WBC 0-2 HPF (0-5)
[2023-04-25 14:59] LABS: Chlamydia Result Negative (Negative); GC Result Negative (Negative)
== END 2023-04-23 10:57 | disposition home or self-care (01) ==
LOC: LBN 10:56
PROVIDERS: PCP Nurse Practitioner Family; Visit Provider Physician Assistant Medical
DX: N89.8 Other specified noninflammatory disorders of vagina (principal)
CPT/HCPCS: 87491; 87591; 81015; 87086; 87480; 87510; 87660